=== PATIENT | female | born 1990 | race Caucasian/White ===

== ENCOUNTER 2020-09-20 00:31 | Inpatient (IN) | payer BC ==
[2020-09-20] MEDS ORDERED: Sodium Chloride 0.9% 10 ML SDV IV PRN (00:38)
[2020-09-20] MEDS ORDERED: Water For Irrigation,Sterile 1,000 ML Container IRR PRN (00:38)
[2020-09-20] MEDS ORDERED: Misoprostol 200 MCG Tab PO PRN (00:38)
[2020-09-20] MEDS ORDERED: Nalbuphine 10 MG/1 ML Vial IVPUSH PRN (00:38)
[2020-09-20] MEDS ORDERED: Ondansetron 4 MG/2 ML SDV IVPUSH PRN (00:38)
[2020-09-20] MEDS ORDERED: Sodium Chloride 0.9% 10 ML Syringe FLUSH PRN (00:38)
[2020-09-20] MEDS ORDERED: Tranexamic Acid 1,000 MG in Sodium Chloride 0.9% 100 ML IV PRN (00:38)
[2020-09-20] MEDS ORDERED: Butorphanol 1 MG/ML SDV IVPUSH PRN (00:38)
[2020-09-20] MEDS ORDERED: Sodium Chloride 0.9% 2.5 ML Syringe FLUSH PRN (00:38)
[2020-09-20] MEDS ORDERED: Methylergonovine 0.2 MG/1 ML Amp IM PRN ×2 (00:38→05:14)
[2020-09-20] MEDS ORDERED: Carboprost Tromethamine 250 MCG/1 ML Amp IM PRN (00:38)
[2020-09-20] MEDS ORDERED: Lidocaine 1% 50 ML MDV INJECT PRN (00:38)
[2020-09-20] MEDS ORDERED: Lactated Ringers 1,000 ML IV SCH (00:45)
[2020-09-20] MEDS ORDERED: Oxytocin/0.9 % Sodium Chloride 30 UNIT/500 ML BAG IV SCH (00:45)
--- NOTE | 2020-09-20 05:13 | PCM.DEL ---
L & D Note - General Info Date of Service: 09/20/20 Mother's Due Date: 09/17/20 - Delivery Note Labor: Spontaneous Delivery Outcome: Livebirth Infant Delivery Method: Spontaneous Vaginal Delivery-Single Presentation: Left Occiput Anterior (FIDELINA) Nuchal Cord: None Prep: Other Anesthesia Type: None Anesthetic: Lidocaine (Xylocaine) 1% Plain Local Anesthetic Volume: Other (10 ml) Amniotic Fluid Description: Clear Episiotomy Type: None Laceration: 2nd Degree Suture type: Vicryl Suture size: 3-0 Placenta: Intact, Spontaneous Cord: 3 Vessels Estimated Blood Loss: 300 Resuscitation Needed: Yes : Suctioned, Bulb Syringe, Stimulated, Warmed Score 1 min: 8 Score 5 min: 8 - General Info Date of Service: 09/20/20 - Patient Data Lab Results Last 24 Hours: Laboratory Results - last 24 hr 09/20/20 09/20/20 09/20/20 Range/Units 00:56 00:56 01:00 WBC 11.38 H (4.0-11.0) K/uL RBC 4.01 L (4.30-5.90) M/uL Hgb 11.5 L (12.0-16.0) g/dL Hct 34.5 L (36.0-46.0) % MCV 86.0 (80.0-98.0) fL MCH 28.7 (27.0-32.0) pg MCHC 33.3 (31.0-37.0) g/dL RDW Std Deviation 40.2 (28.0-62.0) fl RDW Coeff of Gustavo 13 (11.0-15.0) % Plt Count 247 (150-400) K/uL MPV 11.40 (7.40-12.00) fL SARS-CoV-2 RNA (ALEJANDRO) NEGATIVE (NEGATIVE) Blood Type AB NEGATIVE Antibody Screen NEGATIVE Med Orders - Current: Current Medications Butorphanol Tartrate (Butorphanol 1 Mg/Ml Sdv) 1 mg IVPUSH Q1H PRN PRN Reason: Pain Last Admin: 09/20/20 01:54 Dose: 1 mg Documented by: Carboprost Tromethamine (Carboprost Tromethamine 250 Mcg/1 Ml Amp) 250 mcg IM ASDIRECTED PRN PRN Reason: Post Hemorrhage Oxytocin/Sodium Chloride (Oxytocin 30 Unit/500 Ml-Ns) 30 unit in 500 mls @ 999 mls/hr IV TITRATE [facility] Tranexamic Acid 1,000 mg/ (Sodium Chloride) 110 mls @ 660 mls/hr IV ONETIME PRN PRN Reason: Bleeding Lactated Ringer's (Ringers, Lactated) 1,000 mls @ 150 mls/hr IV ASDIRECTED [facility] Lidocaine HCl (Lidocaine 1% 50 Ml Mdv) 50 ml INJECT ONETIME PRN PRN Reason: Laceration repair Methylergonovine Maleate (Methylergonovine 0.2 Mg/1 Ml Amp) 0.2 mg IM ASDIRECTED PRN PRN Reason: Post Hemorrhage Misoprostol (Misoprostol 200 Mcg Tab) 200 mcg PO ONETIME PRN PRN Reason: Post Hemorrhage Nalbuphine HCl (Nalbuphine 10 Mg/1 Ml Vial) 10 mg IVPUSH Q1H PRN PRN Reason: Pain (severe 7-10) Ondansetron HCl (Ondansetron 4 Mg/2 Ml Sdv) 4 mg IVPUSH Q6H PRN PRN Reason: Nausea/Vomiting Sodium Chloride (Sodium Chloride 0.9% 10 Ml Syringe) 10 ml FLUSH ASDIRECTED PRN PRN Reason: Keep Vein Open Sodium Chloride (Sodium Chloride 0.9% 2.5 Ml Syringe) 2.5 ml FLUSH ASDIRECTED PRN PRN Reason: Keep Vein Open Sodium Chloride (Sodium Chloride 0.9% 10 Ml Sdv) 10 ml IV ASDIRECTED PRN PRN Reason: IV Use Sterile Water (Water For Irrigation,Sterile 1,000 Ml Container) 1,000 ml IRR ASDIRECTED PRN PRN Reason: delivery - Problem List & Annotations (1) Vaginal delivery SNOMED Code(s): 205332899 Code(s): O80 - ENCOUNTER FOR FULL-TERM UNCOMPLICATED DELIVERY Status: Acute Current Visit: No - Problem List Review Problem List Initiated/Reviewed/Updated: Yes
[2020-09-20] MEDS ORDERED: Ibuprofen 400 MG Tab PO PRN (05:14)
[2020-09-20] MEDS ORDERED: Lanolin 100% Cream 7 GM Tube TOP PRN (05:14)
[2020-09-20] MEDS ORDERED: Witch Hazel Medicated Pads 40/Jar TOP PRN (05:14)
[2020-09-20] MEDS ORDERED: Benzocaine/Menthol 20%-0.5% Spray 78 GM Cannister TOP PRN (05:14)
[2020-09-20] MEDS ORDERED: Bisacodyl 10 MG Supp RECTAL PRN (05:14)
[2020-09-20] MEDS ORDERED: Acetaminophen 500 MG Tab PO PRN ×2 (05:14)
[2020-09-20] MEDS ORDERED: oxyCODONE 5 MG Tab PO PRN (05:14)
[2020-09-20] MEDS: Ibuprofen 800 MG Tab PO PRN ×3 (05:39→18:15)
[2020-09-20] MEDS: Docusate Sodium 100 MG Cap PO PRN (05:40)
--- NOTE | 2020-09-20 06:15 | OR ---
SURGEON: Shelbi Quevedo M.D. DATE OF PROCEDURE: 09/20/2020 PREOPERATIVE DIAGNOSES: A 40-3/7-week intrauterine , active spontaneous labor. POSTOPERATIVE DIAGNOSES: A 40-3/7-week intrauterine , active spontaneous labor. PROCEDURE: Term spontaneous vaginal delivery, repair of second-degree laceration. PRIMARY SURGEON: Shelbi Quevedo M.D. ANESTHESIA: Local. ESTIMATED BLOOD LOSS: 300 mL. FINDINGS: Liveborn female. score 8 and 8, weighing 3470 g. Cord blood was collected for cord ABGs as well as routine cord blood sampling. The placenta was delivered spontaneously, Schultze intact with 3 vessels. There was a very small second-degree laceration that was repaired. COMPLICATIONS: None known. DISPOSITION: Mother and baby are in LDR in good condition. BRIEF HISTORY: This is a 30-year-old female, G2, P1-0-0-1. She presents at 40-3/7 weeks gestation in active spontaneous labor, category 1 heart tones. She declined epidural. She also declined augmentation of labor. She was admitted to Labor and Delivery. She progressed to complete. At this point, she did agree to rupture of membranes, which was performed, and following this, the head had descended. It was in a left occiput posterior position. After consent, I did rotate the head gently to a left occiput anterior position. DESCRIPTION OF PROCEDURE: With the patient in dorsal lithotomy position, the patient pushed over 3 contractions to a 5+ station. At which time, the head was delivered spontaneously and atraumatically over the perineum with support, with subsequent delivery of the infant's shoulders and body without any difficulty. The infant was bulb suctioned by nose and mouth, and the cord was doubly clamped and cut after 90 seconds, and the was handed to the mother in the presence of the nurse attending delivery. The is a liveborn female, score of 8 and 8, weighing 3470 g. Cord blood was collected for cord ABGs as well as routine cord blood sampling. Pitocin was initiated after delivery of the to assist with delivery of the placenta, which was delivered spontaneously, Schultze intact with 3 vessels. Upon inspection of the pelvis and perineum, there was a very small second-degree perineal laceration. 10 mL of 1% lidocaine was injected into the area. 3-0 Vicryl was utilized in a running locked fashion for the vaginal mucosa, deep running for the perineum, and a subcuticular for the skin, all using the 3-0 Vicryl. Final sponge, needle, and instrument counts were correct. There were no known complications. Mother and baby are in LDR in good condition. CEDRICK MARCANO /[id number]
[2020-09-21] MEDS: Ibuprofen 800 MG Tab PO PRN ×2 (02:14→08:35)
[2020-09-21] MEDS: Docusate Sodium 100 MG Cap PO PRN (02:14)
--- NOTE | 2020-09-21 08:56 | PCM.PNPP ---
- General Info Date of Service: 09/21/20 Subjective Update: She is doing well She has no complains , Normal lochia , good mood Rh negative , received rhogam Functional Status: Reports: Pain Controlled, Tolerating Diet, Ambulating, Urinating - Review of Systems General: Reports: No Symptoms HEENT: Reports: No Symptoms Pulmonary: Reports: No Symptoms Cardiovascular: Reports: No Symptoms Gastrointestinal: Reports: No Symptoms Genitourinary: Reports: No Symptoms Musculoskeletal: Reports: No Symptoms Skin: Reports: No Symptoms Neurological: Reports: No Symptoms Psychiatric: Reports: No Symptoms - General Info Date of Service: 09/21/20 - Patient Data Vital Signs - Most Recent: Last Vital Signs Temp 36.6 C 09/21/20 07:58 Pulse 71 09/21/20 07:58 Resp 14 09/21/20 07:58 BP 115/71 09/21/20 07:58 Pulse Ox 95 09/21/20 07:58 Weight - Most Recent: 80.739 kg I&O - Last 24 Hours: Intake & Output 09/20/20 09/21/20 09/21/20 22:59 06:59 14:59 Intake Total 2 Balance 2 Lab Results - Last 24 Hours: Laboratory Results - last 24 hr 09/20/20 09/21/20 Range/Units 06:20 04:45 Hgb 10.0 L (12.0-16.0) g/dL Hct 30.2 L (36.0-46.0) % Screen NEGATIVE (NEGATIVE) RhIG Candidate? YES Rhogam Indicated YES, BABY RH POS H Med Orders - Current: Current Medications Acetaminophen (Acetaminophen 500 Mg Tab) 500 mg PO Q4H PRN PRN Reason: Pain Acetaminophen (Acetaminophen 500 Mg Tab) 1,000 mg PO Q4H PRN PRN Reason: Pain Benzocaine/Menthol (Benzocaine/Menthol 20%-0.5% [place] 78 Gm Cannister) 78 gm TOP ASDIRECTED PRN PRN Reason: Perineal Comfort Measure Last Admin: 09/20/20 05:41 Dose: 1 canister Documented by: Bisacodyl (Bisacodyl 10 Mg Supp) 10 mg RECTAL ONETIME PRN PRN Reason: Constipation Docusate Sodium (Docusate Sodium 100 Mg Cap) 100 mg PO BID PRN PRN Reason: Constipation Last Admin: 09/21/20 02:14 Dose: 100 mg Documented by: Emollient Ointment (Lanolin 100% Cream 7 Gm Tube) 0 gm TOP ASDIRECTED PRN PRN Reason: Sore Nipples Ibuprofen (Ibuprofen 400 Mg Tab) 400 mg PO Q4H PRN PRN Reason: Pain Ibuprofen (Ibuprofen 800 Mg Tab) 800 mg PO Q6H PRN PRN Reason: Pain Last Admin: 09/21/20 08:35 Dose: 800 mg Documented by: Methylergonovine Maleate (Methylergonovine 0.2 Mg/1 Ml Amp) 0.2 mg IM ONETIME PRN PRN Reason: Excessive Vaginal Bleeding Oxycodone HCl (Oxycodone 5 Mg Tab) 5 mg PO Q2H PRN PRN Reason: Pain Witch Colleen (Witch Colleen Medicated Pads 40/Jar) 1 pad TOP ASDIRECTED PRN PRN Reason: comfort care Last Admin: 09/20/20 05:40 Dose: 1 applic Documented by: Discontinued Medications Butorphanol Tartrate (Butorphanol 1 Mg/Ml Sdv) 1 mg IVPUSH Q1H PRN PRN Reason: Pain Last Admin: 09/20/20 01:54 Dose: 1 mg Documented by: Carboprost Tromethamine (Carboprost Tromethamine 250 Mcg/1 Ml Amp) 250 mcg IM ASDIRECTED PRN PRN Reason: Post Hemorrhage Oxytocin/Sodium Chloride (Oxytocin 30 Unit/500 Ml-Ns) 30 unit in 500 mls @ 999 mls/hr IV TITRATE [facility] Last Admin: 09/20/20 04:50 Dose: 999 mls/hr Documented by: Tranexamic Acid 1,000 mg/ (Sodium Chloride) 110 mls @ 660 mls/hr IV ONETIME PRN PRN Reason: Bleeding Lactated Ringer's (Ringers, Lactated) 1,000 mls @ 150 mls/hr IV ASDIRECTED [facility] Last Infusion: 09/20/20 04:50 Dose: 0 mls/hr Documented by: Lidocaine HCl (Lidocaine 1% 50 Ml Mdv) 50 ml INJECT ONETIME PRN PRN Reason: Laceration repair Methylergonovine Maleate (Methylergonovine 0.2 Mg/1 Ml Amp) 0.2 mg IM ASDIRECTED PRN PRN Reason: Post Hemorrhage Misoprostol (Misoprostol 200 Mcg Tab) 200 mcg PO ONETIME PRN PRN Reason: Post Hemorrhage Nalbuphine HCl (Nalbuphine 10 Mg/1 Ml Vial) 10 mg IVPUSH Q1H PRN PRN Reason: Pain (severe 7-10) Ondansetron HCl (Ondansetron 4 Mg/2 Ml Sdv) 4 mg IVPUSH Q6H PRN PRN Reason: Nausea/Vomiting Sodium Chloride (Sodium Chloride 0.9% 10 Ml Syringe) 10 ml FLUSH ASDIRECTED PRN PRN Reason: Keep Vein Open Sodium Chloride (Sodium Chloride 0.9% 2.5 Ml Syringe) 2.5 ml FLUSH ASDIRECTED PRN PRN Reason: Keep Vein Open Sodium Chloride (Sodium Chloride 0.9% 10 Ml Sdv) 10 ml IV ASDIRECTED PRN PRN Reason: IV Use Sterile Water (Water For Irrigation,Sterile 1,000 Ml Container) 1,000 ml IRR ASDIRECTED PRN PRN Reason: delivery - Infant Interaction Support Person: - Recovery Exam Fundal Tone: Firm Fundal Level: 1 Fingerbreadths Below Umbilicus Fundal Placement: Midline Lochia Amount: Scant Lochia Color: Rubra/Red Perineum Description: Intact, Minimal Bruising/Swelling Other Perinuem Description: 2nd degree laceration Episiotomy/Laceration: Approximated Bladder Status: Palpable - Exam General: Alert HEENT: Pupils Equal Neck: Supple Lungs: Clear to Auscultation Cardiovascular: Regular Rate, Regular Rhythm GI/Abdominal Exam: Normal Bowel Sounds Extremities: Normal Inspection - Problem List & Annotations (1) Vaginal delivery SNOMED Code(s): 168730047 Code(s): O80 - ENCOUNTER FOR FULL-TERM UNCOMPLICATED DELIVERY Status: Acute Current Visit: No - Problem List Review Problem List Initiated/Reviewed/Updated: Yes - Assessment Assessment:: 30 yo s/p PPD1 , doing well S/p Rhogam Normal lochia - Plan Plan:: Routine Discharge home Encourage PNV at home
== END 2020-09-21 11:55 | disposition home or self-care (01) | DRG 560 ==
LOC: MW.OB 00:31 → OBSVTOIN 04:48 → MW.OB 04:48
PROVIDERS: ADMIT Obstetrics & Gynecology; ATTEND Obstetrics & Gynecology
PROC: 10E0XZZ Delivery of Products of Conception, External Approach (ICD-10-PCS; principal; 2020-09-20)
PROC: 0KQM0ZZ Repair Perineum Muscle, Open Approach (ICD-10-PCS; 2020-09-20)
DX: O26.893 Other specified pregnancy related conditions, third trimester (principal); O70.1 Second degree perineal laceration during delivery; Z20.822 Contact with and (suspected) exposure to COVID-19; Z37.0 Single live birth; Z3A.40 40 weeks gestation of pregnancy; Z67.31 Type AB blood, Rh negative
CPT/HCPCS: 36415; 36430; 82803; 85014; 85018; 85027; 85460; 86592; 86850; 86900; 86901; A9270-GY; J0595; J2590; J2792; J7120; U0002